=== PATIENT | male | born 1955 | race Hispanic/Latino ===

== ENCOUNTER 2018-02-08 12:22 | Emergency (ER) | payer MEDICARE ==
[2018-02-08] MEDS ORDERED: KETOROLAC TROMETHAMINE 60 MG/2 ML VIAL ONE (13:03)
[2018-02-08] MEDS ORDERED: DEXAMETHASONE SOD PHOSPHATE 10MG/ML 1ML VIAL ONE (13:03)
[2018-02-08] MEDS ORDERED: ORPHENADRINE CITRATE 30 MG/ML ML ONE (13:03)
== END 2018-02-08 14:16 | disposition home or self-care (01) ==
LOC: EDH 12:22
DX: M54.32 Sciatica, left side (principal); I10 Essential (primary) hypertension; Z88.8 Allergy status to other drugs, medicaments and biological substances; Z98.890 Other specified postprocedural states
CPT/HCPCS: 96372 ×3; 99284; J1100; J1885; J2360

== ENCOUNTER 2023-03-26 20:08 | Emergency (ER) | payer MEDICARE ==
[~2023-03-26] VITALS: Ht 170.2 cm; Wt 76.2 kg
[2023-03-26 20:10] VITALS: O2SAT 98
[2023-03-26 20:11] VITALS: BP 136/76; PULSE 64; RESP 18
[2023-03-26] MEDS ORDERED: TETANUS/DIPHTHERIA TOXOID [ADULT] 0.5 ML VIAL IM ONE (22:00)
[2023-03-26] MEDS ORDERED: CEFAZOLIN SODIUM 1 GM VIAL IM SCH (22:00)
[2023-03-27] MEDS ORDERED: CEPH500B PO (11:05)
== END 2023-03-26 22:29 | disposition home or self-care (01) ==
LOC: EDH 20:08
DX: S61.212A Laceration without foreign body of right middle finger without damage to nail, initial encounter (principal); W45.8XXA Other foreign body or object entering through skin, initial encounter; Y93.89 Activity, other specified; Y92.89 Other specified places as the place of occurrence of the external cause; Y99.8 Other external cause status
CPT/HCPCS: 99284; 90714; 73140; 90471; 12001; 96372; J0690

== ENCOUNTER 2024-07-28 19:31 | Emergency (ER) | payer MEDICARE ==
[~2024-07-28] VITALS: Ht 170.2 cm; Wt 86.2 kg
[~2024-07-28 19:31] MED LIST: CEPH500B PO
[2024-07-28 19:32] VITALS: BP 157/79; PULSE 78; RESP 16; TEMP 98
--- NOTE | 2024-07-28 19:39 | NUR ---
UA CUP PROVIDED
--- NOTE | 2024-07-28 20:19 | HMCIMG ---
EXAM: LUMBAR SPINE 2-3VWS REASON: low back pain hx of fusion. COMPARISON: None. TECHNIQUE: 3 views of the lumbar spine were obtained. FINDINGS: There is interspace narrowing at L2-3 and L3-4. Remaining interspaces are preserved. There are surgical changes at the L5-S1 level with hardware placement. Vertebral body alignment is normal. There are no compression fractures. Soft tissues appear unremarkable. IMPRESSION: 1. Postoperative and degenerative changes, no acute finding.
[2024-07-28 20:21] LABS: APPEARANCE,URINE CLEAR (CLEAR); BILIRUBIN,URINE NEGATIVE (NEGATIVE); COLOR,URINE YELLOW (YELLOW); GLUCOSE, URINE (UA) NEGATIVE (NEGATIVE); KETONES,URINE 5 mg/dL (NEGATIVE); LEUKOCYTE ESTERASE ,URINE NEGATIVE Leu/uL (NEGATIVE); NITRATE,URINE NEGATIVE (NEGATIVE); OCCULT BLOOD,URINE NEGATIVE (NEGATIVE); PH,URINE 5.5 (5.0-8.0); PROTEIN,URINE 10 mg/dL (NEGATIVE); UROBILINOGEN,URINE 0.2 mg/dL (0.2-1.0)
[2024-07-28] MEDS: TRIAMCINOLONE ACETONIDE 40 MG/ML 1ML VIAL IM ONE (20:22)
[2024-07-28] MEDS: ketOROlac 30MG VIAL (30MG/ML) IM ONE (20:23)
[2024-07-28] MEDS: ORPHENADRINE 60MG/2ML IM ONE (20:23)
[2024-07-28 20:37] LABS: ADD UA MICROSCOPIC YES
[2024-07-28 20:39] LABS: BACTERIA,URINE RARE /HPF (None Seen); MUCUS,URINE RARE LPF (None Seen); RBC,URINE 0-1 /HPF (0-1)
[2024-07-28] MEDS ORDERED: GABA-534 PO (21:04)
[2024-07-28] MEDS ORDERED: CYCL10TA16 PO (21:04)
[2024-07-28] MEDS ORDERED: KETO10TA2 PO (21:04)
--- NOTE | 2024-07-28 21:04 | ERN ---
General Chief Complaint: Lower Extremity Pain/Injury Stated Complaint: LEFT GLUTEAL AND LEFT THIGH PAIN Time Seen by MD: 19:33 Time Seen by Midlevel: 19:33 Source: patient History of Present Illness Initial Comments Patient is a 60-year-old male with a past medical history of lumbar fusions presenting to the emergency department with left lower back pain that radiates down to his left gluteal area and around to the front of his knee. Patient states that approximately one week ago he was lifting a refrigerator and believes he may have injured himself. He reports some mild numbness to the anterior portion of his left thigh. Denies any focal weakness. Denies any urinary/bowel incontinence. Denies any other symptoms at this time. Allergies: Coded Allergies: omeprazole (Unverified Allergy, Unknown, 05/18/18) Home Meds Active Scripts Cyclobenzaprine HCl (Flexeril) 10 Mg Tab, 10 MG PO BID for muscle sstiffness for 5 Days, #10 TAB 0 Refills Prov:OPAL ALMANZA 07/28/24 Ketorolac Tromethamine (Ketorolac Tromethamine) 10 Mg Tablet, 1 TAB PO BID for pain for 5 Days, #10 TAB 0 Refills Prov:OPAL ALMANZA 07/28/24 Gabapentin (Gabapentin) 400 Mg Capsule, 1 CAP PO TID for 5 Days, #15 CAP 0 Refills Prov:OPAL ALMANZA 07/28/24 Cephalexin Monohydrate (Keflex) 500 Mg Cap, 500 MG PO QID for 7 Days, #28 CAP Prov:ANNA GRANDE 03/27/23 Past Medical History Past Medical History: High Cholesterol, Hypertension, Prostatitis, Other Medical History Other: GASTRITIS Past Surgical History: Other Surgical History Other: BACK, RT KNEE ROS Dictation CONSTITUTIONAL: Negative except for HPI HEAD/FACE: Negative except for HPI EENT: Negative except for HPI RESPIRATORY: Negative except for HPI GASTROINTESTINAL/ABDOMINAL: Negative except for HPI GENITOURINARY: Negative except for HPI MUSCULOSKELETAL: Negative except for HPI INTEGUMENTARY: Negative except for HPI NEUROLOGICAL/PSYCH: Negative except for HPI HEMATOLOGIC/LYMPHATIC: Negative except for HPI All Systems Negative, Except as noted above. 13 point review of systems assessed and all negative except for above. Physical Exam Physical Exam Dictation Vital Signs reviewed General Appearance: Alert, oriented x 3, no acute distress, well developed, nourished. Head and Face: non-traumatic. Eyes: PERRL, pink conjunctivas, eyelid no trauma, anterior chamber with arcus senilis. Ears: Pinnas intact and no signs of trauma or erythema ear canals clear and no discharge TM no erythema Nose: No discharge, no bleeding. Oropharynx: Mouth normal, tongue pink, pharynx clear,no erythema, tonsils no exudates, no abscesses noted, mucous membrane moist Neck: Supple, non-tender, no thyromegaly, no masses, no JVD, no bruits Breast:Deferred Chest:No tenderness, no crepitus, no paradoxical movement, no retractions Lungs:Clear, well-ventilated, symmetric, no rales, no wheezing, no rhonchi, no stridor, good breath sounds bilaterally Heart: Regular rate, regular rhythm, no murmur, no gallops Vascular: no peripheral edema, Abdomen: Soft, positive bowel sounds, nondistended, no guarding, nontender, no rebound, no masses no hepatomegaly, no splenomegaly, no Gonzalez's sign, no hernias. Rectal: Deferred Genital: Deferred Neurological: Normal speech, motor function intact, sensory function intact Musculoskeletal: Neck nontender, full range of motion, back nontender, full range of motion, Extremities: nontender, full range of motion Skin: Color pink, dry, no turgor, no rash, no lacerations, no abrasions, no contusions. Lymphatic: Deferred Results Laboratory and Microbiology Lab and Micro Result Laboratory Tests Test 07/28/24 19:53 Urine Color YELLOW (YELLOW) Urine Appearance CLEAR (CLEAR) Urine pH 5.5 (5.0-8.0) Urine Specific [place] 1.033 (1.001-1.031) Urine Protein 10 mg/dL (NEGATIVE) H Urine Glucose (UA) NEGATIVE mg/dL (NEGATIVE) Urine Ketones 5 mg/dL (NEGATIVE) H Urine Occult Blood NEGATIVE (NEGATIVE) Urine Nitrate NEGATIVE (NEGATIVE) Urine Bilirubin NEGATIVE mg/dL (NEGATIVE) Urine Urobilinogen 0.2 mg/dL (0.2-1.0) Urine Leukocyte Esterase NEGATIVE [place]/uL Urine RBC 0-1 /HPF (0-1) Urine WBC None /HPF (0-1) Urine Bacteria RARE /HPF (None Seen) Labs Reviewed?: Yes MDM MDM: Patient is a 60-year-old male with a past medical history of lumbar fusions presenting to the emergency department with left lower back pain that radiates down to his left gluteal area and around to the front of his knee. Patient s tates that approximately one week ago he was lifting a refrigerator and believes he may have injured himself. He reports some mild numbness to the anterior portion of his left thigh. Denies any focal weakness. Denies any urinary/bowel incontinence. Denies any other symptoms at this time. On physical examination patient is in no acute distress. He was able to ambulate from the lobby into the examination room with out assistance and with a normal gait. He was sensation intact to bilateral lower extremities. His GCS is 15. His neurological examination is unremarkable. He was 5/5 strength to bilateral lower extremities. He was good distal pulses to bilateral lower extremities. An x-ray of the lumbar area does not reveal any acute fracture or dislocation. Patient was given Kenalog, Toradol, and Norflex in the emergency department and does report feeling improved. His symptoms most likely related to sciatica however he was advised that if he develops any new or worsening symptoms he is to report to the ER as soon as possible. The patient was given strict return precautions however at this time he does not have any red flag symptoms. Differential diagnosis: Sciatica, lumbar strain, vertebral fracture There are no social concerns with this patient. Prescription drug management Prescriptions will include: Toradol, gabapentin, Flexeril Medical management and examination interpretation discussions were had by me with other qualified healthcare professionals as indicated for the patient's care. ED Course Orders Procedure Category Date Status Time Urinalysis Profile LAB 07/28/24 Complete 19:53 Triamcinolone Acet PHA 07/28/24 Complete 40mg/Ml 1ml (Kenalog 20:00 Ketorolac PHA 07/28/24 Complete Tromethamine 30mg/Ml 20:00 Orphenadrine Citrate PHA 07/28/24 Complete (Norflex) 20:00 Lumbar Spine 2-3vws RAD 07/28/24 Resulted 19:53 Current Medications Medications (Trade) Dose Ordered Sig/Jossue Route PRN Reason Start Time Stop Time Status Last Admin Dose Admin Ketorolac Tromethamine (toRADol) 30 mg ONCE ONCE IM 07/28/24 20:00 07/28/24 20:01 DC 07/28/24 20:23 Orphenadrine Citrate (Norflex) 60 mg ONCE ONCE IM 07/28/24 20:00 07/28/24 20:01 DC 07/28/24 20:23 Triamcinolone Acetonide (Kenalog 40) 40 mg ONCE ONCE IM 07/28/24 20:00 07/28/24 20:01 DC 07/28/24 20:22 Vital Signs Date Time Temp Pulse Resp B/P (MAP) Pulse Ox O2 Delivery O2 Flow Rate FiO2 07/28/24 19:32 98.1 78 16 157/79 99 Room Air [facility] [address] [place] [address] IMAGING REPORT Signed PATIENT: KENRICK CASTILLO MR#: [id number] : 1955 SEX: M AGE: 68 LOCATION: [facility] ORDER 53 STATUS: REG ER REPORT#: [id number] SERVICE 52 REASON: low back pain hx of fusion ORDERING PHYSICIAN: OPAL ALMANZA PROCEDURE: LUMB 2 3VW - LUMBAR SPINE 2-3VWS EXAM: LUMBAR SPINE 2-3VWS REASON: low back pain hx of fusion. COMPARISON: None. TECHNIQUE: 3 views of the lumbar spine were obtained. FINDINGS: There is interspace narrowing at L2-3 and L3-4. Remaining interspaces are preserved. There are surgical changes at the L5-S1 level with hardware placement. Vertebral body alignment is normal. There are no compression fractures. Soft tissues appear unremarkable. IMPRESSION: 1. Postoperative and degenerative changes, no acute finding. DICTATED BY: AMANDEEP CONCEPCION MD DATE: 07/28/242014 ELECTRONICALLY SIGNED BY: AMANDEEP CONCEPCION MD DATE: 07/28/242018 DX & DISP Disposition: Discharge Departure Impression: Primary Impression: Sciatic leg pain Condition: Stable Scripts Cyclobenzaprine HCl (Flexeril) 10 Mg Tab 10 MG PO BID for muscle sstiffness for 5 Days, #10 TAB 0 Refills Prov: OPAL ALMANZA 07/28/24 Ketorolac Tromethamine (Ketorolac Tromethamine) 10 Mg Tablet 1 TAB PO BID for pain for 5 Days, #10 TAB 0 Refills Prov: POAL ALMANZA 07/28/24 Gabapentin (Gabapentin) 400 Mg Capsule 1 CAP PO TID for 5 Days, #15 CAP 0 Refills Prov: OPAL ALMANZA 07/28/24 Referrals: ALEXEY CHRISTIANSON MD (PCP) I have reviewed the case, and I agree with, Diagnosis and Plan I PERFORMED THE SUBSTANTIVE PORTION OF THE VISIT. I HAVE REVIEWED AND PERSONALLY MADE AND APPROVE THE MANAGEMENT PLAN THAT IS DOCUMENTED IN THE NOTE BY MYSELF OR THE XIN. I ACKNOWLEDGE FOR RESPONSIBILITY FOR THE PATIENT'S MANAGEMENT PLAN. OPAL ALMANZA Jul 28, 2024 21:04
== END 2024-07-28 21:22 | disposition home or self-care (01) ==
LOC: EDH 19:31
DX: M54.32 Sciatica, left side (principal); E78.00 Pure hypercholesterolemia, unspecified; I10 Essential (primary) hypertension; Z79.899 Other long term (current) drug therapy; Z98.1 Arthrodesis status; Z98.890 Other specified postprocedural states
CPT/HCPCS: 99284; 81001; 72100; 96372 ×3; J3301; J1885; J2360

== ENCOUNTER 2025-07-18 14:32 | Emergency (ER) | payer MEDICARE, OTHER ==
[~2025-07-18] VITALS: Ht 170.2 cm; Wt 84.4 kg
[~2025-07-18 14:32] MED LIST changes: +CYCL10TA16 PO; +GABA-534 PO; +KETO10TA2 PO
--- NOTE | 2025-07-18 15:00 | EKG ---
[facility] Test Date: 2025-07-18 Test Time: 14:54:39 Pat Name: KENRICK CASTILLO Department: [facility] Patient ID: [id number] Room: Gender: M [place] Stitcher: [id number] : 1955 Requested By: OPAL ALMANZA Order Number: [id number] Reading MD: Pippa Garner Measurements Intervals Kyle Rate: 60 P: 34 MS: 237 QRS: -47 QRSD: 119 T: 31 QT: 443 QTc: 442 Interpretive Statements Sinus rhythm Prolonged MS interval Left anterior fascicular block No previous ECG available for comparison Electronically Signed On 07-20-2025 13:11:30 PARTS DESIGN[employer] by Pippa Garner Please click the below link to view image of tracing.
[2025-07-18 15:14] LABS: IMMATURE GRANULOCYTE ABSOLUTE 0.01 K/uL (0-1); NUCLEATED RED BLOOD CELLS 0.0 % (0.0-0.19); PLATELET COUNT (AUTO) 264 K/uL (130-400); RED BLOOD CELL COUNT(AUTO) 4.54 MIL/uL (4.50-6.20); RED CELL DISTRIBUTION WIDTH 13.3 % (11.0-15.5); WHITE BLOOD COUNT (AUTO) 5.5 K/uL (4.8-10.8)
[2025-07-18 15:25] LABS: CREATININE 0.7 mg/dL (0.5-1.3); GLOMERULAR FILTR. RATE CALC 100.0 mL/min (>90); GLUCOSE,RANDOM 91.0 mg/dL (70-105); SODIUM SERUM 139.0 mmol/L (136-145); UREA NITROGEN, BLOOD 10.0 mg/dL (7-18)
[2025-07-18 15:35] LABS: ASPARTATE AMINOTRANSFERASE 17.0 U/L (10-37); TOTAL PROTEIN, SERUM 7.8 g/dL (6.0-8.3)
[2025-07-18] MEDS ORDERED: ONDA-243 PO (16:19)
[2025-07-18] MEDS ORDERED: FAMO-136 PO (16:19)
--- NOTE | 2025-07-18 16:20 | ERN ---
General Chief Complaint: Abdominal Pain Stated Complaint: ABD PAIN Time Seen by MD: 14:43 Time Seen by Midlevel: 14:43 Source: patient History of Present Illness Initial Comments 69-year-old male with a past medical history of acid reflux/gastritis presenting to the ER for evaluation of midepigastric abdominal pain. No associated symptoms reported. Patients specifically denies any chest pain or any other symptoms. Allergies: Coded Allergies: omeprazole (Unverified Allergy, Unknown, 05/18/18) Home Meds Active Scripts Cyclobenzaprine HCl (Flexeril) 10 Mg Tab, 10 MG PO BID for muscle sstiffness for 5 Days, #10 TAB 0 Refills Prov:OPAL ALMANZA [facility] 07/28/24 Ketorolac Tromethamine (Ketorolac Tromethamine) 10 Mg Tablet, 1 TAB PO BID for pain for 5 Days, #10 TAB 0 Refills Prov:OPAL ALMANZA [facility] 07/28/24 Gabapentin (Gabapentin) 400 Mg Capsule, 1 CAP PO TID for 5 Days, #15 CAP 0 Refills Prov:OPAL ALMANZA [facility] 07/28/24 Cephalexin Monohydrate (Keflex) 500 Mg Cap, 500 MG PO QID for 7 Days, #28 CAP Prov:ANNA GRANDE V ORE FEEDER 03/27/23 Past Medical History Past Medical History: High Cholesterol, Hypertension, Prostatitis, Other Medical History Other: GASTRITIS Past Surgical History: Other Surgical History Other: BACK, RT KNEE ROS Dictation CONSTITUTIONAL: Negative except for HPI HEAD/FACE: Negative except for HPI EENT: Negative except for HPI RESPIRATORY: Negative except for HPI GASTROINTESTINAL/ABDOMINAL: Negative except for HPI GENITOURINARY: Negative except for HPI MUSCULOSKELETAL: Negative except for HPI INTEGUMENTARY: Negative except for HPI NEUROLOGICAL/PSYCH: Negative except for HPI HEMATOLOGIC/LYMPHATIC: Negative except for HPI All Systems Negative, Except as noted above. 13 point review of systems assessed and all negative except for above. Physical Exam Physical Exam Dictation Vital Signs reviewed General Appearance: Alert, oriented x 3, no acute distress, well developed, nourished. Head and Face: non-traumatic. Eyes: PERRL, pink conjunctivas, eyelid no trauma, anterior chamber with arcus senilis. Ears: Pinnas intact and no signs of trauma or erythema ear canals clear and no discharge TM no erythema Nose: No discharge, no bleeding. Oropharynx: Mouth normal, tongue pink, pharynx clear,no erythema, tonsils no exudates, no abscesses noted, mucous membrane moist Neck: Supple, non-tender, no thyromegaly, no masses, no JVD, no bruits Breast:Deferred Chest:No tenderness, no crepitus, no paradoxical movement, no retractions Lungs:Clear, well-ventilated, symmetric, no rales, no wheezing, no rhonchi, no stridor, good breath sounds bilaterally Heart: Regular rate, regular rhythm, no murmur, no gallops Vascular: no peripheral edema, Abdomen: Soft, positive bowel sounds, nondistended, no guarding, nontender, no rebound, no masses no hepatomegaly, no splenomegaly, no Gonzalez's sign, no hernias. Rectal: Deferred Genital: Deferred Neurological: Normal speech, motor function intact, sensory function intact Musculoskeletal: Neck nontender, full range of motion, back nontender, full range of motion, Extremities: nontender, full range of motion Skin: Color pink, dry, no turgor, no rash, no lacerations, no abrasions, no contusions. Lymphatic: Deferred Results Laboratory and Microbiology Lab and Micro Result Laboratory Tests Test 07/18/25 14:49 White Blood Count 5.5 K/uL (4.8-10.8) Red Blood Count 4.54 MIL/uL (4.50-6.20) Hemoglobin 13.6 g/dL (14.0-18.0) L Hematocrit 39.9 % (42-54) L Mean Corpuscular Volume 87.9 fL (79-99) Mean Corpuscular Hemoglobin 30.0 pg (27.0-33.0) Mean Corpuscular Hemoglobin Concent 34.1 g/dL (32.0-36.0) Red Cell Distribution Width 13.3 % (11.0-15.5) Platelet Count 264 K/uL (130-400) Mean Platelet Volume 9.7 fL (7.5-10.5) Immature Granulocyte % (Auto) 0.2 % (0-1) Neutrophils (%) (Auto) 58.3 % (40.0-77.0) Lymphocytes (%) (Auto) 30.5 % (21.0-51.0) Monocytes (%) (Auto) 9.3 % (3.0-13.0) Eosinophils (%) (Auto) 1.3 % (0.0-8.0) Basophils (%) (Auto) 0.4 % (0.0-5.0) Neutrophils # (Auto) 3.2 K/uL (1.8-7.7) Lymphocytes # (Auto) 1.7 K/uL (1.0-4.8) Monocytes # (Auto) 0.5 K/uL (0.1-1.0) Eosinophils # (Auto) 0.07 K/uL (0.00-0.70) Basophils # (Auto) 0.02 K/uL (0.00-0.20) Absolute Immature Granulocyte (auto 0.01 K/uL (0-1) Nucleated Red Blood Cells 0.0 % (0.0-0.19) Sodium Level 139 mmol/L (136-145) Potassium Level 4.4 mmol/L (3.5-5.1) Chloride Level 101 mmol/L (101-111) Carbon Dioxide Level 30 mmol/L (21-32) Blood Urea Nitrogen 10 mg/dL (7-18) Creatinine 0.7 mg/dL (0.5-1.3) Glomerular Filtration Rate Calc 100 mL/min (>90) Random Glucose 91 mg/dL (70-105) Total Calcium 9.2 mg/dL (8.5-10.1) Total Bilirubin 0.2 mg/dL (0.2-1.0) Aspartate Amino Transf (AST/SGOT) 17 U/L (10-37) Alanine Aminotransferase (ALT/SGPT) 24 U/L (12-78) Alkaline Phosphatase 68 U/L (50-136) Troponin I High Sensitivity 4 ng/L (4-75) Total Protein 7.8 g/dL (6.0-8.3) Albumin 4.4 g/dL (3.5-5.0) Lipase 40 U/L (16-77) Labs Reviewed?: Yes MDM MDM: 69-year-old male with a past medical history of acid reflux/gastritis presenting to the ER for evaluation of midepigastric abdominal pain. No associated symptoms reported. Patients specifically denies any chest pain or any other symptoms. On physical examination patient is in no acute distress. He is afebrile and nontoxic appearing. His abdominal examination shows no abdominal tenderness, rebound, or guarding. An abdominal workup was initiated. CBC shows no leukocytosis. Chemistries are unremarkable. Liver function tests are normal. Troponin is negative. Patient does not have chest pain at this time. ACS less likely due to negative troponin and no presenting symptoms. No need for advanced imaging at this time given that his liver function tests including his bilirubin is normal. We will discharged home with a diagnosis of gastritis. Differential diagnosis: Gastritis, GERD, ACS There are no social concerns with this patient. Prescription drug management Prescriptions will include: Zofran and Pepcid Medical management and examination interpretation discussions were had by me with other qualified healthcare professionals as indicated for the patient's care. ED Course Orders Procedure Category Date Status Time Cbc With Differential LAB 07/18/25 Complete 14:43 Comprehensive LAB 07/18/25 Complete Metabolic Panel 14:43 Lipase LAB 07/18/25 Complete 14:43 Troponin I High LAB 07/18/25 Complete Sensitivity 14:43 12 Lead Ekg Tracing- EKG 07/18/25 Complete Technical 14:43 Urinalysis Profile LAB 07/18/25 Logged 14:43 Lidocaine Hcl 2% PHA 07/18/25 Logged Viscous (Lidocaine Hcl 16:30 Mag/Alum/Simeth 30ml PHA 07/18/25 Logged (Maalox Plus 30ml) 16:30 Current Medications Medications (Trade) Dose Ordered Sig/Jossue Route PRN Reason Start Time Stop Time Status Last Admin Dose Admin Al Hydroxide/Mg Hydroxide (MAALox PLUS 30ML) 30 ml ONCE ONCE PO 07/18/25 16:30 07/18/25 16:31 UNV Lidocaine HCl (Lidocaine HCl 2% Viscous) 10 ml ONCE ONCE PO 07/18/25 16:30 07/18/25 16:31 UNV Vital Signs Date Time Temp Pulse Resp B/P (MAP) Pulse Ox O2 Delivery O2 Flow Rate FiO2 07/18/25 14:34 98.1 63 16 158/79 98 Room Air 0 DX & DISP Disposition: Discharge Departure Impression: Primary Impression: Gastritis Condition: Stable Scripts Famotidine (Pepcid) 20 Mg Tablet 1 TAB PO BID for 10 Days, #20 TAB 0 Refills Prov: OPAL ALMANZA PAC 07/18/25 Ondansetron (Ondansetron Odt) 4 Mg Tab.rapdis 4 MG PO BID for 7 Days, #14 TAB Prov: OPAL ALMANZA PAC 07/18/25 Additional Instructions: Your blood work today is unremarkable. There are no signs of infection. Your liver function tests are normal. Your lipase level was normal which rules out pancreatitis. Your troponin level was normal. This test is use to measure if your heart is under any stress. Your symptoms may be related to gastritis. I have given you a prescription for Zofran and Pepcid. You will need to follow up with your primary care doctor for possible referral to GI specialist. Referrals: ALEXEY CHRISTIANSON MD (PCP) Time of Disposition: 16:17 I have reviewed the case, and I agree with, Diagnosis and Plan I performed the substantive portion of the visit. I have reviewed and personally made and approve the management plan that is documented in the note by myself or the XIN. I acknowledge for responsibility for the patient's management plan. OPAL ALMANZA PAC Jul 18, 2025 16:20
[2025-07-18] MEDS: LIDOCAINE HCL 2% VISCOUS 15 ML UDCUP PO SCH (16:45)
[2025-07-18] MEDS: MAG/ALUM/SIMETH 30 ML UDCUP PO SCH (16:45)
[2025-07-18 17:17] VITALS: BP 137/68; PULSE 64; RESP 16; TEMP 98.1; O2SAT 98
[2025-07-18 17:57] LABS: APPEARANCE,URINE CLEAR (CLEAR); GLUCOSE, URINE (UA) NEGATIVE (NEGATIVE); LEUKOCYTE ESTERASE ,URINE NEGATIVE Leu/uL (NEGATIVE); NITRATE,URINE NEGATIVE (NEGATIVE); OCCULT BLOOD,URINE NEGATIVE (NEGATIVE)
[2025-07-18 17:58] LABS: ADD UA MICROSCOPIC NO
== END 2025-07-18 17:17 | disposition home or self-care (01) ==
LOC: EDH 14:32
DX: K29.70 Gastritis, unspecified, without bleeding (principal); E78.00 Pure hypercholesterolemia, unspecified; I10 Essential (primary) hypertension; Z79.899 Other long term (current) drug therapy
CPT/HCPCS: 36415; 80053; 81003; 83690; 84484; 85025; 93005; 99284